=== PATIENT | male | born 1950 | race Two or more races ===

== ENCOUNTER 2017-08-19 10:50 | Inpatient (IN) | payer OTHER ==
[2017-08-19 11:01] VITALS: BMI 27.3
--- NOTE | 2017-08-19 11:26 | PDOC ---
History of Present Illness - History of Present Illness Initial Comments: 08/19/17 12:42 The patient is a 67 year old male with significant history of hyperetension, hyperlipidemia, NIDDM, CAD s/p stents, diverticulosis, umbilical hernia s/p repair, sent by his PCP for approximately 3 weeks of lower abdominal pain that is worst in the LLQ quadrant. Pain is sharp, nonradiating, and ranked 8/10. He was seen by his PCP approximately 2 weeks ago. Bloodwork reportedly demonstrated elevated WBC. He was started on a 1 week course of Flagyl and Ciprofloxacin without some improvement, but his symptoms worsened last night. He was sent to the ED by his PCP for further evaluation. The patient denies any fever or chills. He does endorse recent constipation, but denies vomiting or diarrhea. He denies hematuria or dysyuria. He denies chest pain or shortness of breath. PCP: Dr. Latoya Melissa GI: Dr. Shannon <Adia Jerome - Last Filed: 08/19/17 12:48> <Amairani Krishnamurthy - Last Filed: 08/19/17 15:00> - General History Source: Patient Exam Limitations: No Limitations <Amber Werner - Last Filed: 08/19/17 15:29> - General Chief Complaint: Pain Stated Complaint: ABD PAIN, EVALUATION (PCP SENT) Time Seen by Provider: 08/19/17 11:26 Past History <Adia Jerome - Last Filed: 08/19/17 12:48> <Amairani Krishnamurthy - Last Filed: 08/19/17 15:00> - Past Medical History Cardiac Disorders: Yes (STENT X2) COPD: No DVT: No Diabetes: Yes (NIDDM) HTN: Yes Hypercholesterolemia: Yes - Surgical History Cardiac Surgery: Yes (STENT X2) - Immunization History Immunization Up to Date: Yes - Suicide/Smoking/Psychosocial Hx Smoking History: Never smoked Have you smoked in the past 12 months: No Information on smoking cessation initiated: No Hx Alcohol Use: No Substance Use Type: None <Amber Werner - Last Filed: 08/19/17 15:29> - Past Medical History Allergies/Adverse Reactions: Allergies Allergy/AdvReac Type Severity Reaction Status Date / Time No Known Allergies Allergy Verified 08/19/17 10:55 Home Medications: Ambulatory Orders Aspirin 81 mg PO DAILY 08/19/17 Atorvastatin Ca [Lipitor] 40 mg PO HS 08/19/17 Ciprofloxacin HCl [Cipro] 500 mg PO BID 08/19/17 Losartan 50Mg/Hctz 12.5MG [Hyzaar -] 1 tab PO DAILY 08/19/17 Metformin HCl 500 mg PO BID 08/19/17 metroNIDAZOLE [Flagyl -] 500 mg PO DAILY 08/19/17 Review of Systems - Review of Systems Able to Perform ROS?: Yes Comments:: 08/19/17 12:45 GENERAL/CONSTITUTIONAL: No: fever, chills, weakness, loss of appetite. HEAD, EYES, EARS, NOSE AND THROAT: No: change in vision, ear pain, discharge, sore throat, throat swelling. CARDIOVASCULAR: No: chest pain, lightheadedness, palpitations, syncope RESPIRATORY: No: cough, shortness of breath, wheezing, hemoptysis, stridor. GASTROINTESTINAL: Present: LLQ pain, constipation. No: nausea, vomiting, diarrhea, rectal bleeding GENITOURINARY: No: dysuria, hematuria, frequency, urgency, flank pain. MUSCULOSKELETAL: No: back pain, neck pain, joint pain, muscle swelling or pain SKIN AND BREASTS: No: lesions, pallor, rash or easy bruising. NEUROLOGIC: No: headache, vertigo, paresthesias, weakness ENDOCRINE: No: unexplained weight gain or loss HEMATOLOGIC/LYMPHATIC: No: anemia, easy bleeding, swelling nodes <Adia Jerome - Last Filed: 08/19/17 12:48> *Physical Exam - Vital Signs Last Vital Signs Temp Pulse Resp BP Pulse Ox 98.2 F 78 16 141/100 145 H 08/19/17 10:56 08/19/17 10:56 08/19/17 10:56 08/19/17 10:56 08/19/17 10:56 - Physical Exam Comments: 08/19/17 12:46 GENERAL: The patient is in no acute distress. HEAD: Normal with no signs of trauma. EYES: PERRLA, EOMI, sclera anicteric, conjunctiva clear. ENT: Ears normal, nares patent, oropharynx clear without exudates. Moist mucous membranes. NECK: Normal range of motion, supple without lymphadenopathy, JVD, or masses. LUNGS: Breath sounds equal, clear to auscultation bilaterally. No wheezes, and no crackles. HEART:Regular rate and rhythm, normal S1 and S2 without murmur, rub or gallop. ABDOMEN: +LLQ and suprapubic ttp. Soft, normoactive bowel sounds. No guarding, no rebound. EXTREMITIES: Normal range of motion, no edema. No clubbing or cyanosis. No erythema, or tenderness. NEUROLOGICAL: Cranial nerves II through XII grossly intact. Normal speech. No focal neurological deficits. MUSCULOSKELETAL: Back non-tender to palpation, no CVA tenderness SKIN: Warm, Dry, normal turgor, no rashes or lesions noted. <Adia Jerome - Last Filed: 08/19/17 12:48> - Vital Signs Last Vital Signs Temp Pulse Resp BP Pulse Ox 98.2 F 78 16 141/100 145 H 08/19/17 10:56 08/19/17 10:56 08/19/17 10:56 08/19/17 10:56 08/19/17 10:56 <Amairani Krishnamurthy - Last Filed: 08/19/17 15:00> - Vital Signs Last Vital Signs Temp Pulse Resp BP Pulse Ox 98.2 F 78 16 141/100 145 H 08/19/17 10:56 08/19/17 10:56 08/19/17 10:56 08/19/17 10:56 08/19/17 10:56 <Amber Werner - Last Filed: 08/19/17 15:29> ED Treatment Course - LABORATORY CBC & Chemistry Diagram: 08/19/17 11:35 08/19/17 11:35 - ADDITIONAL ORDERS Additional order review: 08/19/17 11:35 RBC 4.55 MCV 91.1 MCHC 35.1 RDW 13.6 MPV 8.1 Neutrophils % 80.3 Lymphocytes % 8.5 Monocytes % 9.2 Eosinophils % 1.3 Basophils % 0.7 <Adia Jerome - Last Filed: 08/19/17 12:48> - LABORATORY CBC & Chemistry Diagram: 08/19/17 11:35 08/19/17 11:35 - ADDITIONAL ORDERS Additional order review: Laboratory Results 08/19/17 11:35 Sodium 139 Potassium 4.3 Chloride 101 Carbon Dioxide 26 Anion Gap 12 BUN 14 Creatinine 0.9 Creat Clearance w eGFR > 60 Random Glucose 135 H Calcium 8.8 Total Bilirubin 0.9 AST 17 ALT 27 Alkaline Phosphatase 70 Total Protein 6.8 Albumin 3.3 L 08/19/17 11:35 RBC 4.55 MCV 91.1 MCHC 35.1 RDW 13.6 MPV 8.1 Neutrophils % 80.3 Lymphocytes % 8.5 Monocytes % 9.2 Eosinophils % 1.3 Basophils % 0.7 - Medications Given in the ED: ED Medications Discontinued Medications Generic Name Dose Route Start Last Admin Trade Name Ajit PRN Reason Stop Dose Admin Morphine Sulfate 4 mg 08/19/17 12:37 08/19/17 13:22 Morphine Injection - IVPUSH 08/19/17 12:38 4 mg ONCE ONE Administration <Amairani Krishnamurthy - Last Filed: 08/19/17 15:00> - LABORATORY CBC & Chemistry Diagram: 08/19/17 11:35 08/19/17 11:35 <Amber Werner - Last Filed: 08/19/17 15:29> Medical Decision Making - Medical Decision Making 08/19/17 14:[address] Melissa via office number. Awaiting call back 08/19/17 14:58 Returned Shin's page and the patients case was discussed. 08/19/17 15:[address] Andres. Page returned. Patients case was discussed. <Amairani Krishnamurthy - Last Filed: 08/19/17 15:00> - Medical Decision Making 08/19/17 12:35 Mr. Ma is a 67-year-old male with a history of diabetes, hypertension, hyperlipidemia, coronary artery disease status post stent who presents emergency department with a complaint of left lower quadrant pain. The patient states his symptoms began approximately 3 weeks ago, and have progressively worsened over the course of this past 3 weeks. He was seen by his primary care physician a possibly 2 weeks ago. He was started on Cipro and Flagyl. Patient states he initially improved however last night his abdominal pain worsened significantly. No fevers, chills. No nausea, vomiting. No diarrhea. Patient actually notes constipation. Yesterday he took MiraLAX in order to have a bowel movement. He describes his pain as sharp, rates it 7-8/10. No radiation. Patient last colonoscopy was 4 years ago, consistent with diverticulosis. PMD: Dr. Melissa. Gastrologist: Dr. Shannon. On examination:. Patient has left lower quadrant tenderness to palpation, no involuntary guarding or rebound. Patient has superpubic tenderness to palpation. No abdominal distention. Will do: Labs CT Pain medication Reassess 08/19/17 14:53 Laboratory Tests 08/19/17 08/19/17 11:35 11:35 WBC 13.4 H Hgb 14.6 Hct 41.4 Plt Count 295 Sodium 139 Potassium 4.3 Chloride 101 Carbon Dioxide 26 BUN 14 Creatinine 0.9 Random Glucose [address] demonstrates: Acute sigmoid diverticulitis with no evidence of extraluminal gas or drainable fluid collection. 08/19/17 15:[address] Hutton. He still wants the patient to be admitted. Case reviewed with Dr. Andres. Will admit to [facility]. Will give a dose of Zosyn, Flagyl. Please note: Patient had an episode of lightheadedness/dizziness. Improved when patient was laid flat. Clinical impression: Acute uncomplicated diverticulitis, initial presentation <Amber Werner - Last Filed: 08/19/17 15:29> *DC/Admit/Observation/Transfer - Attestations Scribe Attestion: 08/19/17 12:46 Documentation prepared by Adia Jerome, acting as durable medical equipment repairer for Amber Werner MD. <Adia Jerome - Last Filed: 08/19/17 12:48> <Amairani Krishnamurthy - Last Filed: 08/19/17 15:00> - Discharge Dispostion Admit: Yes <Amber Werner - Last Filed: 08/19/17 15:29> Diagnosis at time of Disposition: Diverticulitis large intestine Qualifiers: Diverticulitis bleeding: unspecified bleeding status Diverticulitis complication: without perforation or abscess Qualified Code(s): K57.32 - Diverticulitis of large intestine without perforation or abscess without bleeding - Discharge Dispostion Condition at time of disposition: Stable - Referrals Referrals: Latoya Melissa MD [Primary Care Provider] -
[2017-08-19] MEDS ORDERED: SODIUM CHLORIDE 1,000 ML IV STA (11:27)
[2017-08-19 12:02] LABS: BASO % 0.7 % (0-2.0); EOS % 1.3 % (0-4.5); HEMATOCRIT 41.4 % (35.4-49); HEMOGLOBIN 14.6 GM/dL (11.7-16.9); LYMPH % 8.5 % (8-40); MCHC 35.1 g/dl (32.0-35.9); MEAN CELL VOLUME 91.1 fl (80-96); MEAN PLT VOLUME 8.1 fl (7.5-11.1); MONO % 9.2 % (3.8-10.2); NEUT % 80.3 % (42.8-82.8); PLATELET COUNT 295 K/MM3 (134-434); RBC 4.55 M/mm3 (4.00-5.60); RDW 13.6 % (11.9-15.9); WHITE BLOOD COUNT 13.4 K/mm3 (4.0-10.0)
[2017-08-19 12:21] LABS: ALBUMIN 3.3 g/dl (3.4-5.0); ANION GAP 12 (8-16); BLOOD UREA NITROGEN 14 mg/dL (7-18); CALCIUM 8.8 mg/dL (8.5-10.1); CHLORIDE 101 mmol/L (98-107); CO2 26 mmol/L (21-32); CREATININE 0.9 mg/dL (0.7-1.3); GLUCOSE,RANDOM 135 mg/dL (74-106); POTASSIUM 4.3 mmol/L (3.5-5.1); SGOT/AST 17 U/L (15-37); SGPT/ALT 27 U/L (12-78); SODIUM 139 mmol/L (136-145)
[2017-08-19 12:23] LABS: ALK PHOS 70 U/L (45-117); BILIRUBIN,TOTAL 0.9 mg/dL (0.2-1.0); TOT PROT 6.8 g/dl (6.4-8.2)
[2017-08-19] MEDS ORDERED: morphine CARPU-JECT 4 MG/1 ML DISP.SYRIN IVPUSH ONE (12:37)
[2017-08-19] MEDS ORDERED: morphine SULFATE 4 MG/ML VIAL ONE (13:18)
[2017-08-19] MEDS ORDERED: PIPERACILLIN/TAZOB 3.375 GM/50 ML PRE-DOCKED IVPB ONE (15:55)
[2017-08-19] MEDS ORDERED: PIPERACILLIN/TAZOB 3.375 GM 3.375 GM/50 ML BAG IVPB ONE (16:25)
[2017-08-19] MEDS ORDERED: PNEUMOC 13-VAL CONJ-DIP CRM/PF 0.5 ML DISP.SYRIN IM ONE ×2 (19:45→21:00)
[2017-08-19] MEDS ORDERED: morphine SULFATE 4 MG/ML VIAL IVPUSH PRN (21:34)
[2017-08-19] MEDS ORDERED: ONDANSETRON 4 MG/2 ML VIAL IVPB PRN (21:40)
[2017-08-19] MEDS: SODIUM CHLORIDE 1,000 ML IV SCH (22:24)
[2017-08-20] MEDS: SODIUM CHLORIDE 1,000 ML IV SCH ×3 (04:00→22:08)
--- NOTE | 2017-08-20 11:40 | HP ---
Admitting History and Physical - Primary Care Physician PCP: Mila Hutton - Admission Chief Complaint: Abdominal pain LLQ History of Present Illness: The patient is a 67 year old male with significant history of hyperetension, hyperlipidemia, NIDDM, CAD s/p stents, diverticulosis, umbilical hernia s/p repair, sent by his PCP for approximately 3 weeks of lower abdominal pain that is worst in the LLQ quadrant. Pain is sharp, nonradiating, and ranked 8/10. He was seen by his PCP approximately 2 weeks ago. Bloodwork reportedly demonstrated elevated WBC. He was started on a 1 week course of Flagyl and Ciprofloxacin without some improvement, but his symptoms worsened last night. He was sent to the ED by his PCP for further evaluation. The patient denies any fever or chills. He does endorse recent constipation, but denies vomiting or diarrhea. He denies hematuria or dysyuria. He denies chest pain or shortness of breath. History Source: Patient, Medical Record Limitations to Obtaining History: No Limitations - Smoking History Smoking history: Never smoked Have you smoked in the past 12 months: No - Alcohol/Substance Use Hx Alcohol Use: No Home Medications - Allergies Allergies/Adverse Reactions: Allergies Allergy/AdvReac Type Severity Reaction Status Date / Time No Known Allergies Allergy Verified 08/19/17 10:55 - Home Medications Home Medications: Ambulatory Orders Aspirin 81 mg PO DAILY 08/19/17 Atorvastatin Ca [Lipitor] 40 mg PO HS 08/19/17 Ciprofloxacin HCl [Cipro] 500 mg PO BID 08/19/17 Losartan 50Mg/Hctz 12.5MG [Hyzaar -] 1 tab PO DAILY 08/19/17 Metformin HCl 500 mg PO BID 08/19/17 metroNIDAZOLE [Flagyl -] 500 mg PO DAILY 08/19/17 Review of Systems - Review of Systems Constitutional: reports: No Symptoms Eyes: reports: No Symptoms HENT: reports: No Symptoms Neck: reports: No Symptoms Cardiovascular: reports: No Symptoms Respiratory: reports: No Symptoms Gastrointestinal: reports: Abdominal Pain Genitourinary: reports: No Symptoms Breasts: reports: No Symptoms Reported Musculoskeletal: reports: No Symptoms Integumentary: reports: No Symptoms Neurological: reports: No Symptoms Endocrine: reports: No Symptoms Hematology/Lymphatic: reports: No Symptoms Psychiatric: reports: No Symptoms Physical Examination Vital Signs: Vital Signs Temperature 98.8 F 08/20/17 10:46 Pulse Rate 77 08/20/17 10:46 Respiratory Rate 18 08/20/17 10:46 Blood Pressure 125/71 08/20/17 10:46 O2 Sat by Pulse Oximetry (%) 98 08/19/17 20:31 Constitutional: Yes: Well Nourished, No Distress, Calm Cardiovascular: Yes: Regular Rate and Rhythm Respiratory: Yes: Regular Gastrointestinal: Yes: Normal Bowel Sounds, Soft Musculoskeletal: Yes: WNL Extremities: Yes: WNL Edema: No Peripheral Pulses WNL: Yes Neurological: Yes: Alert, Oriented Psychiatric: Yes: Alert, Oriented Labs: CBC, BMP 08/19/17 11:35 08/19/17 11:35 Imaging - Results Cat Scan: Report Reviewed Problem List - Problems (1) Diverticulitis Assessment/Plan: -GI consult -Diet as per GI -ID consult for empiric abx -IVF -labs in AM Code(s): K57.92 - DVTRCLI OF INTEST, PART UNSP, W/O PERF OR ABSCESS W/O BLEED Assessment/Plan see problem list
[2017-08-20 12:44] LABS: BASO % 0.8 % (0-2.0); EOS % 1.8 % (0-4.5); HEMOGLOBIN 13.5 GM/dL (11.7-16.9); LYMPH % 12.4 % (8-40); MCH 31.3 pg (25.7-33.7); MCHC 33.8 g/dl (32.0-35.9); MEAN CELL VOLUME 92.7 fl (80-96); MEAN PLT VOLUME 8.6 fl (7.5-11.1); MONO % 8.6 % (3.8-10.2); NEUT % 76.4 % (42.8-82.8); PLATELET COUNT 284 K/MM3 (134-434); RBC 4.32 M/mm3 (4.00-5.60); RDW 13.7 % (11.9-15.9); WHITE BLOOD COUNT 10.1 K/mm3 (4.0-10.0)
[2017-08-20 13:22] LABS: ALBUMIN 2.8 g/dl (3.4-5.0); ALK PHOS 59 U/L (45-117); ANION GAP 11 (8-16); BILIRUBIN,TOTAL 0.6 mg/dL (0.2-1.0); BLOOD UREA NITROGEN 10 mg/dL (7-18); CHLORIDE 109 mmol/L (98-107); CO2 23 mmol/L (21-32); CREATININE 0.7 mg/dL (0.7-1.3); GLUCOSE,RANDOM 91 mg/dL (74-106); SGOT/AST 12 U/L (15-37); SGPT/ALT 21 U/L (12-78); SODIUM 143 mmol/L (136-145); TOT PROT 5.8 g/dl (6.4-8.2)
--- NOTE | 2017-08-20 15:43 | PN ---
Progress Note (short form) - Note Progress Note: ID Consult dictated Acute uncomplicated sigmoid diverticulitis Blood c/s Empiric zosyn / flagyl
--- NOTE | 2017-08-20 16:14 | CON.GI ---
Consult Consult Specialty:: GI Reason for Consultation:: Abdominal pain/Diverticulitis - History of Present Illness History of Present Illness: 67 year old male with history of diverticulitis and ambilical hernia consulted on 07/10 LLQ abdominal pain with suspected acute diverticulitis. He denies nausea , no vomiting, no constipation. last colonoscopy was done 2013 and was noted to have scattered diverticula in the colon and a small adenomatous polyp in cecum. - History Source History Provided By: Patient Limitations to Obtaining History: No Limitations - Past Medical History Gastrointestinal: Yes: Constipation, Diverticulosis - Alcohol/Substance Use Hx Alcohol Use: No History of Substance Use: reports: None - Smoking History Smoking history: Never smoked Have you smoked in the past 12 months: No Home Medications - Allergies Allergies/Adverse Reactions: Allergies Allergy/AdvReac Type Severity Reaction Status Date / Time No Known Allergies Allergy Verified 08/19/17 10:55 - Home Medications Home Medications: Ambulatory Orders Aspirin 81 mg PO DAILY 08/19/17 Atorvastatin Ca [Lipitor] 40 mg PO HS 08/19/17 Ciprofloxacin HCl [Cipro] 500 mg PO BID 08/19/17 Losartan 50Mg/Hctz 12.5MG [Hyzaar -] 1 tab PO DAILY 08/19/17 Metformin HCl 500 mg PO BID 08/19/17 metroNIDAZOLE [Flagyl -] 500 mg PO DAILY 08/19/17 Review of Systems - Review of Systems Constitutional: reports: No Symptoms Eyes: reports: No Symptoms HENT: reports: No Symptoms Cardiovascular: reports: No Symptoms Respiratory: reports: No Symptoms Gastrointestinal: reports: Abdominal Pain (LLQ). denies: Diarrhea, Nausea, Vomiting Physical Exam-GI Vital Signs: Vital Signs Temperature 98.6 F 08/20/17 15:27 Pulse Rate 76 08/20/17 15:27 Respiratory Rate 18 08/20/17 15:27 Blood Pressure 113/69 08/20/17 15:27 O2 Sat by Pulse Oximetry (%) 100 08/20/17 09:00 Constitutional: Yes: Well Nourished, No Distress, Calm Eyes: Yes: Conjunctiva Clear HENT: Yes: Atraumatic Cardiovascular: Yes: Regular Rate and Rhythm Respiratory: Yes: Regular, CTA Bilaterally Gastrointestinal Inspection: Yes: WNL ...Auscultate: Yes: Normoactive Bowel Sounds ...Palpate: Yes: Soft, Tenderness (Umbilical and LLQ). No: Firm/Rigid, Guarding , Tenderness, Epigastium, Tenderness, Rebound Neurological: Yes: Alert, Oriented. No: Confusion Labs: CBC, BMP 08/20/17 12:25 08/20/17 12:25 Problem List - Problems (1) Diverticulitis Assessment/Plan: Recommendation 1.continue Zosyn and Flagyl 2. advance diet to low residue as tolerated 3. schedule colonoscopy in 6 weeks s/p discharge 4. patient made aware to follow up in office. Code(s): K57.92 - DVTRCLI OF INTEST, PART UNSP, W/O PERF OR ABSCESS W/O BLEED (2) LLQ abdominal pain Assessment/Plan: same as above Code(s): R10.32 - LEFT LOWER QUADRANT PAIN
--- NOTE | 2017-08-20 16:31 | CONS ---
DATE OF CONSULTATION: DATE OF DICTATION: 08/20/2017 INFECTIOUS DISEASE CONSULTATION HISTORY OF PRESENT ILLNESS: The patient is a 67-year-old male. History of diverticulosis evaluated for acute sigmoid diverticulitis. The patient reports that approximately 3 weeks ago he developed left lower quadrant pain. He was prescribed ciprofloxacin and Flagyl with improvement in his symptoms. The pain recurred over the past several days, was localized to the left lower quadrant. He reports it was also associated with constipation. He presented to the emergency room where a CAT scan showed acute sigmoid diverticulitis. He was empirically with Zosyn and Flagyl. His course was complicated by elevated white blood cell count of 13,000. He denies any high-grade fever or shaking chills, had no complaints of nausea or vomiting. His last bowel movement was prior to admission. PAST MEDICAL HISTORY: Positive for diverticulosis. He underwent a colonoscopy 4 years ago. Hypertension, hyperlipidemia, non-insulin dependent diabetes mellitus, coronary artery disease, status post coronary artery stents. ALLERGIES: No known allergies. PAST SURGICAL HISTORY: Status post umbilical hernia repair. MEDICATION: Aspirin, Lipitor, ciprofloxacin, metronidazole, metformin, losartan, hydrochlorothiazide. SOCIAL HISTORY: He resides at home with his significant other. Negative tobacco, alcohol use. SYSTEMS REVIEW: Neurologic: No loss of consciousness, seizure activity, or focal weakness. Cardiac: Negative chest pain or palpitations. Respiratory: Negative cough or sputum production. Gastrointestinal: As per HPI. Genitourinary: Negative for urinary tract infection. LABORATORY DATA: White count on admission 13.4, presently 10.1, hematocrit 40.0, platelet count 284, BUN 10, creatinine 0.7. Liver enzymes normal. PHYSICAL EXAMINATION: General: He is awake and alert. Supine in bed in no acute distress. Vital signs: Temperature 98.6F, blood pressure 113/69, pulse 76 regular, respirations 18 per minute. HEENT: Sclerae anicteric. Cardiovascular: Heart sounds S1, S2. Respiratory: Lungs clear. Abdomen: Left lower quadrant tenderness to palpation. No mass, rebound, or rigidity. Healed umbilical scar. Extremities: Negative for edema. IMPRESSION: 1. Acute uncomplicated sigmoid diverticulitis. 2. Leukocytosis, rule out sepsis secondary to diverticulitis. 3. Diabetes mellitus. Will obtain blood cultures. Empiric antibiotic coverage in this patient who has apparently failed oral quinolone therapy as an outpatient with Zosyn and Flagyl. GI evaluation. Analgesics. IV fluid, hydration. Will follow. Thank you for the kind referral. RODRICK CORDERO M.D. ERIC/[id number]
[2017-08-20] MEDS: PIPERACILLIN/TAZOB 3.375 GM 3.375 GM in DEXTROSE 5%-WATER - 50 ML IVPB SCH (20:25)
[2017-08-20] MEDS ORDERED: diphenhydrAMINE HCL 25 MG CAPSULE (FP) PO ONE (22:26)
[2017-08-21] MEDS: PIPERACILLIN/TAZOB 3.375 GM 3.375 GM in DEXTROSE 5%-WATER - 50 ML IVPB SCH ×3 (01:36→18:10)
[2017-08-21] MEDS ORDERED: PT OWN MED DRAWER 7, Y5N ONE ×2 (06:03→09:16)
[2017-08-21 07:03] LABS: BASO % 0.7 % (0-2.0); EOS % 2.2 % (0-4.5); HEMATOCRIT 37.9 % (35.4-49); LYMPH % 11.4 % (8-40); MCH 31.5 pg (25.7-33.7); MCHC 34.4 g/dl (32.0-35.9); MEAN CELL VOLUME 91.4 fl (80-96); MEAN PLT VOLUME 8.4 fl (7.5-11.1); MONO % 9.2 % (3.8-10.2); NEUT % 76.5 % (42.8-82.8); PLATELET COUNT 271 K/MM3 (134-434); RBC 4.14 M/mm3 (4.00-5.60); RDW 13.5 % (11.9-15.9); WHITE BLOOD COUNT 9.7 K/mm3 (4.0-10.0)
[2017-08-21 07:06] LABS: ALBUMIN 2.5 g/dl (3.4-5.0); ANION GAP 12 (8-16); BLOOD UREA NITROGEN 9 mg/dL (7-18); CALCIUM 7.8 mg/dL (8.5-10.1); CHLORIDE 109 mmol/L (98-107); CO2 22 mmol/L (21-32); CREATININE 0.6 mg/dL (0.7-1.3); GLUCOSE,RANDOM 93 mg/dL (74-106); POTASSIUM 3.8 mmol/L (3.5-5.1); SGOT/AST 10 U/L (15-37); SGPT/ALT 18 U/L (12-78); SODIUM 143 mmol/L (136-145)
[2017-08-21 07:08] LABS: ALK PHOS 53 U/L (45-117); BILIRUBIN,TOTAL 0.6 mg/dL (0.2-1.0); TOT PROT 5.5 g/dl (6.4-8.2)
--- NOTE | 2017-08-21 11:07 | PN ---
Progress Note, Physician Chief Complaint: Diverticulitis History of Present Illness: -NAD independent -seen by ID and GI -IV abx -tolerating PO intake - Current Medication List Current Medications: Active Medications Sodium Chloride (Normal Saline -) 1,000 mls @ 75 mls/hr IV ASDIR DADA Last Admin: 08/20/17 22:08 Dose: 75 mls/hr Metronidazole (Flagyl 500mg Premixed Ivpb -) 500 mg in 100 mls @ 100 mls/hr IVPB Q6H-IV DADA Last Admin: 08/21/17 09:24 Dose: 100 mls/hr Piperacillin Sod/Tazobactam (Sod 3.375 gm/ Dextrose) 50 mls @ 100 mls/hr IVPB Q8H-IV DADA PRN Reason: Protocol Last Admin: 08/21/17 09:25 Dose: 100 mls/hr Morphine Sulfate (Morphine Sulfate) 2 mg IVPUSH Q4H PRN PRN Reason: Pain 7-10 Ondansetron HCl (Zofran Injection) 4 mg IVPB Q6H PRN PRN Reason: NAUSEA - Objective Vital Signs: Vital Signs Temperature 98.4 F 08/21/17 06:00 Pulse Rate 74 08/21/17 06:00 Respiratory Rate 16 08/21/17 06:00 Blood Pressure 134/85 08/21/17 06:00 O2 Sat by Pulse Oximetry (%) 100 08/20/17 09:00 Constitutional: Yes: Well Nourished, No Distress, Calm Cardiovascular: Yes: Regular Rate and Rhythm Respiratory: Yes: Regular Gastrointestinal: Yes: Normal Bowel Sounds, Soft Musculoskeletal: Yes: WNL Extremities: Yes: WNL Edema: No Peripheral Pulses WNL: Yes Neurological: Yes: Alert, Oriented Psychiatric: Yes: Alert, Oriented Labs: CBC, BMP 08/21/17 05:30 08/21/17 05:30 Problem List - Problems (1) Diverticulitis Assessment/Plan: -GI consult -Diet as per GI -ID on board -IV abx -IVF -labs reviewed Code(s): K57.92 - DVTRCLI OF INTEST, PART UNSP, W/O PERF OR ABSCESS W/O BLEED Assessment/Plan see problem list
--- NOTE | 2017-08-21 14:00 | PN ---
Progress Note, Physician History of Present Illness: No c/o abdominal pain Tolerating solid diet No N/V + BM last evening No fever/ chills - Current Medication List Current Medications: Active Medications Sodium Chloride (Normal Saline -) 1,000 mls @ 75 mls/hr IV ASDIR DADA Last Admin: 08/20/17 22:08 Dose: 75 mls/hr Metronidazole (Flagyl 500mg Premixed Ivpb -) 500 mg in 100 mls @ 100 mls/hr IVPB Q6H-IV DADA Last Admin: 08/21/17 09:24 Dose: 100 mls/hr Piperacillin Sod/Tazobactam (Sod 3.375 gm/ Dextrose) 50 mls @ 100 mls/hr IVPB Q8H-IV DADA PRN Reason: Protocol Last Admin: 08/21/17 09:25 Dose: 100 mls/hr Morphine Sulfate (Morphine Sulfate) 2 mg IVPUSH Q4H PRN PRN Reason: Pain 7-10 Ondansetron HCl (Zofran Injection) 4 mg IVPB Q6H PRN PRN Reason: NAUSEA - Objective Vital Signs: Vital Signs Temperature 97.8 F 08/21/17 08:00 Pulse Rate 74 08/21/17 08:00 Respiratory Rate 20 08/21/17 08:00 Blood Pressure 140/83 08/21/17 08:00 O2 Sat by Pulse Oximetry (%) 100 08/21/17 08:00 Constitutional: Yes: No Distress Eyes: Yes: Conjunctiva Clear Cardiovascular: Yes: Regular Rate and Rhythm, S1, S2 Respiratory: Yes: CTA Bilaterally Gastrointestinal: Yes: Normal Bowel Sounds, Soft. No: Tenderness Edema: No Labs: CBC, BMP 08/21/17 05:30 08/21/17 05:30 Assessment/Plan Acute uncomplicated sigmoid diverticulitis Leukocytosis- resolved Continue empiric zosyn/ flagyl
--- NOTE | 2017-08-21 16:37 | PN ---
GI Progress Note Subjective: patients abdominal pain resolved,tolerated solid food, no nause and vomiting, has constipation - Objective Vital Signs: Vital Signs Temperature 98.2 F 08/21/17 14:52 Pulse Rate 72 08/21/17 14:52 Respiratory Rate 20 08/21/17 14:52 Blood Pressure 126/64 08/21/17 14:52 O2 Sat by Pulse Oximetry (%) 100 08/21/17 08:00 Constitutional: Well Nourished Eyes: Yes: Conjunctiva Clear HENT: Yes: Atraumatic Cardiovascular: Yes: Regular Rate and Rhythm Respiratory: Yes: CTA Bilaterally ...Palpate: Yes: Soft. No: Firm/Rigid, Guarding, Hepatomegaly, Pulsatile Mass, Splenomegaly, Tenderness Labs: CBC, BMP 08/21/17 05:30 08/21/17 05:30 Problem List - Problems (1) Diverticulitis Assessment/Plan: --resolving R> made aware to follow-up for colonoscopy in 6 weeks Docusate 300mg daily Code(s): K57.92 - DVTRCLI OF INTEST, PART UNSP, W/O PERF OR ABSCESS W/O BLEED
[2017-08-21] MEDS: DOCUSATE SODIUM 100 MG CAPSULE (FP) PO SCH (18:10)
[2017-08-21] MEDS ORDERED: LORazepam 1 MG TABLET PO ONE (20:00)
[2017-08-21] MEDS: SODIUM CHLORIDE 1,000 ML IV SCH (21:52)
[2017-08-22] MEDS: PIPERACILLIN/TAZOB 3.375 GM 3.375 GM in DEXTROSE 5%-WATER - 50 ML IVPB SCH ×2 (01:48→11:00)
[2017-08-22 05:55] VITALS: BP 107/60; PULSE 71; TEMP 98.6
[2017-08-22] MEDS ORDERED: PT OWN MED DRAWER 7, Y5N ONE (08:59)
[2017-08-22] MEDS: DOCUSATE SODIUM 100 MG CAPSULE (FP) PO SCH (09:06)
--- NOTE | 2017-08-22 11:21 | DS ---
Physical Exam: SUBJECTIVE: Patient seen and examined OBJECTIVE: Vital Signs Period Temp Pulse Resp BP Sys/Rivera Pulse Ox Last 24 Hr 98.2 F-98.6 F 71-72 20-20 107-126/60-64 99 PHYSICAL EXAM GENERAL: The patient is awake, alert, and fully oriented, in no acute distress. HEAD: Normal with no signs of trauma. EYES: PERRL, extraocular movements intact, sclera anicteric, conjunctiva clear. ENT: Ears normal, nares patent, oropharynx clear without exudates, moist mucous membranes. NECK: Trachea midline, full range of motion, supple. LUNGS: Breath sounds equal, clear to auscultation bilaterally, no wheezes, no crackles, no accessory muscle use. HEART: Regular rate and rhythm, S1, S2 without murmur, rub or gallop. ABDOMEN: Soft, nontender, nondistended, normoactive bowel sounds, no guarding, no rebound, no hepatosplenomegaly, no masses. EXTREMITIES: 2+ pulses, warm, well-perfused, no edema. NEUROLOGICAL: Cranial nerves II through XII grossly intact. Normal speech, gait not observed. PSYCH: Normal mood, normal affect. SKIN: Warm, dry, normal turgor, no rashes or lesions noted. LABS HOSPITAL COURSE: Date of Admission:08/19/17 Date of Discharge: 08/22/17 Discharge Summary Reason For Visit: DIVERTICULITIS OF LARGE INTESTINE Current Active Problems Diverticulitis (Acute) Diverticulitis large intestine (Acute) LLQ abdominal pain (Acute) Condition: Improved - Instructions Diet, Activity, Other Instructions: You were admitted for IV antibiotics to treat acute diverticulitis. You are being prescribed an oral antibiotic, Augmentin, to take for 7 more days. You may resume your usual activity. Please follow a low fiber diet. If you develop fever, chills, abdominal pain, please call your physician or return to the ER. Please schedule appointments with your PCP, Dr. Latoya Melissa, and your jewelry sorter, Dr. Rik Shannon, in the next week. Referrals: Latoya Melissa MD [Primary Care Provider] - 1 Week Rik Shannon MD [Staff Physician] - 1 Week Disposition: HOME - Home Medications Comprehensive Discharge Medication List: Ambulatory Orders Aspirin 81 mg PO DAILY 08/19/17 Atorvastatin Ca [Lipitor] 40 mg PO HS 08/19/17 Losartan 50Mg/Hctz 12.5MG [Hyzaar -] 1 tab PO DAILY 08/19/17 Metformin HCl 500 mg PO BID 08/19/17 Amox-Tr/K Cl [Augmentin - 875Mg Tablet] 1 tab PO BID #14 tablet 08/22/17 Docusate Sodium [Colace -] 300 mg PO DAILY capsule 08/22/17
== END 2017-08-22 13:02 | disposition home or self-care (01) | DRG 392 ==
LOC: JER 10:50 → JERBED 15:29 → J6S 20:03
PROVIDERS: ADMIT Family Medicine; ATTEND Internal Medicine
DX: K57.32 Diverticulitis of large intestine without perforation or abscess without bleeding (principal); I10 Essential (primary) hypertension; E78.5 Hyperlipidemia, unspecified; E11.9 Type 2 diabetes mellitus without complications; I25.10 Atherosclerotic heart disease of native coronary artery without angina pectoris; K57.90 Diverticulosis of intestine, part unspecified, without perforation or abscess without bleeding; D12.0 Benign neoplasm of cecum; K59.00 Constipation, unspecified; R10.32 Left lower quadrant pain; D72.828 Other elevated white blood cell count; Z95.5 Presence of coronary angioplasty implant and graft
CPT/HCPCS: 36415; 74176-TC; 80053; 82962; 83036; 85025; 87040; 90670; 99283-25; J7030